=== PATIENT | male | born 1980 | race Caucasian/White ===

== ENCOUNTER 2016-10-01 07:22 | Emergency (ER) | payer MEDICARE, OTHER ==
[~2016-10-01] VITALS: Ht 177.8 cm; Wt 109.0 kg
[~2016-10-01 07:22] MED LIST: LEVE500T8 PO
[2016-10-01] MEDS ORDERED: LOSA25TA21 PO (07:27)
[2016-10-01] MEDS ORDERED: SIMV5TAB6 PO (07:48)
[2016-10-01] MEDS ORDERED: METF500T4 PO (07:48)
[2016-10-01 07:58] LABS: GLUCOSE,POINT OF CARE 215 MG/DL (70-110)
[2016-10-01] MEDS ORDERED: IBUPROFEN 600 MG TABLET PO ONE (08:00)
[2016-10-01 08:15] VITALS: BP 116/71
== END 2016-10-01 08:21 | disposition home or self-care (01) ==
LOC: EMS 07:24
DX: G40.909 Epilepsy, unspecified, not intractable, without status epilepticus (principal); E11.65 Type 2 diabetes mellitus with hyperglycemia; I10 Essential (primary) hypertension; R51 Headache
CPT/HCPCS: 82962; 99283